=== PATIENT | female | born 1985 | race African-American/Black ===

== ENCOUNTER 2020-05-23 07:36 | Observation (INO) | payer BC ==
[2020-05-23] MEDS: MISOPROSTOL 0.2 MG TABLET PV SCH ×4 (09:32→22:08)
[2020-05-23 09:34] LABS: ABSOLUTE LYMPHOCYTES (AUTO) 1.4 10^3/uL (0.5-4.7); ABSOLUTE MONOCYTES (AUTO) 0.3 10^3/uL (0.1-1.4); ABSOLUTE NEUT (AUTO) 1.6 10^3/uL (1.7-8.2); BASOPHILS % (AUTO) 0.5 % (0-2); EOSINOPHILS % (AUTO) 0.5 % (0-6); HEMATOCRIT 34.8 % (36.0-47.0); HEMOGLOBIN 12.1 g/dL (12.0-15.5); LYMPHOCYTES % (AUTO) 41.8 % (13-45); MEAN CORPUSCULAR HEMOGLOBIN 28.2 pg (27.0-33.4); MEAN CORPUSCULAR HGB CONC 34.9 g/dL (32.0-36.0); MEAN CORPUSCULAR VOLUME 81 fl (80-97); MONOCYTES % (AUTO) 10.1 % (3-13); PLATELET COUNT 239 10^3/uL (150-450); RED CELL DISTRIBUTION WIDTH 15.5 % (11.5-14.0); SEGMENTED NEUTROPHILS % (AUTO) 47.1 % (42-78); TOTAL CELLS COUNTED % (AUTO) 100 %; WHITE BLOOD COUNT 3.3 10^3/uL (4.0-10.5)
[2020-05-23] MEDS ORDERED: MISOPROSTOL 0.2 MG TABLET PV SCH (10:00)
--- NOTE | 2020-05-23 11:53 | RADIOLOGY REPORT (SQ) ---
EXAM DESCRIPTION: U/S 1TRIMESTER/1GEST W/DOPPLER IMAGES COMPLETED DATE/TIME: 05/23/2020 11:39 am REASON FOR STUDY: demise 13 wk COMPARISON: None. TECHNIQUE: Transabdominal static and realtime grayscale images acquired of the pelvis. Additional se lected spectral and color Doppler images recorded. All images stored on PACs. bHCG: Not applicable. CLINICAL DATES: 15 week 4 day. LIMITATIONS: None. FINDINGS: FETUS: Single intrauterine . ULTRASOUND EGA: 12 week 4 day. ULTRASOUND MIGUEL: 12/01/2020. EFW: Not applicable less than 20 weeks. CRL: 6.11 cm. FHR: No cardiac activity. SURVEY: No visualized anomalies. AMNIOTIC FLUID: Adequate amount. PLACENTA: Not yet developed due to early gestation. SUBCHORIONIC BLEED: No. SIZE OF BLEED: Not applicable. UTERUS: No masses. No anomalies. CERVICAL LENGTH: 2.7 cm. Closed. RIGHT ADNEXA: Normal ovary with normal vascular flow. No adnexal free fluid. No adnexal masses. LEFT ADNEXA: Normal ovary with normal vascular flow. No adnexal free fluid. No adnexal masses. FREE FLUID: None. OTHER: No other significant finding. IMPRESSION: SINGLE INTRAUTERINE . NO CARDIAC ACTIVITY CONSISTENT WITH DEMISE. EGA 12 WEEK 4 DAY. Trimester of : First trimester - 0 to 13 weeks. TECHNICAL DOCUMENTATION: JOB ID: [id number] [employer]- All Rights Reserved rev-09/23 Reading location - IP/workstation name: [email or web address] ROSA
[2020-05-23] MEDS ORDERED: FLUCONAZOLE 100 MG TABLET ONE (12:27)
[2020-05-23] MEDS ORDERED: FLUCONAZOLE 100 MG TABLET PO ONE (12:30)
[2020-05-23] MEDS: OXYCODONE-ACETAMINOPHEN 5-325 MG TABLET PO PRN (13:35)
[2020-05-23] MEDS ORDERED: ONDANSETRON 4 MG TAB.RAPDIS PO PRN (18:08)
[2020-05-24] MEDS: OXYCODONE-ACETAMINOPHEN 5-325 MG TABLET PO PRN (01:13)
[2020-05-24] MEDS: MISOPROSTOL 0.2 MG TABLET PV SCH ×4 (02:24→17:06)
--- NOTE | 2020-05-24 02:34 | PDOC PROGRESS REPORT ---
Subjective Date:: 05/24/20 Subjective:: Passed fetus. Reason For Visit: DEMISE @ 14 WEEKS Physical Exam - Physical Exam Vital Signs: Temp Pulse Resp BP Pulse Ox 98.8 F 78 18 109/64 100 05/24/20 00:00 05/24/20 00:00 05/24/20 00:00 05/24/20 00:00 05/24/20 00:00 Intake & Output 05/22/20 05/23/20 05/24/20 06:59 06:59 06:59 Output Total 300 Balance -300 Weight 54.431 kg Result Laboratory Results: 05/23/20 08:57 05/23/20 05/23/20 08:57 08:57 WBC 3.3 L RBC 4.30 Hgb 12.1 Hct 34.8 L MCV 81 MCH 28.2 MCHC 34.9 RDW 15.5 H Plt Count 239 Seg Neutrophils % 47.1 Blood Type O POSITIVE Antibody Screen NEGATIVE Impressions: Obstetrics Ultrasound 05/23/20 00:00 IMPRESSION: SINGLE INTRAUTERINE . NO CARDIAC ACTIVITY CONSISTENT WITH DEMISE. EGA 12 WEEK 4 DAY. Trimester of : First trimester - 0 to 13 weeks. The patient passed the fetus. There are obvious deformities of the head and face. There are thin bands connecting the legs, arms and wrapping around the umbilical cord. One of the ankles is nearly amputated. This appears to be the cause of . The placenta has not yet passed and another dose of cytotec was placed. Assessment & Plan - Diagnosis (1) demise before 20 weeks with retention of fetus Is this a current diagnosis for this admission?: Yes - Time Time Spent with patient: 15-24 minutes Medications reviewed and adjusted accordingly: Yes Anticipated discharge: Home Anticipated DC Timeframe: within 24 hours - Plan Summary Plan Summary: Still awaiting delivery of the placenta.
[2020-05-24] MEDS ORDERED: MISOPROSTOL 0.2 MG TABLET ONE ×2 (06:32→10:08)
[2020-05-24] MEDS: RINGERS SOLUTION,LACTATED 1,000 ML IV PRN ×2 (07:45→15:45)
[2020-05-24] MEDS ORDERED: MISOPROSTOL 0.2 MG TABLET PV ONE (10:07)
[2020-05-24] MEDS ORDERED: FENTANYL CITRATE INJ/PF 100 MCG/2 ML AMPUL ONE (12:46)
[2020-05-24] MEDS ORDERED: MIDAZOLAM 2 MG/2 ML INJ ONE (12:46)
[2020-05-24] MEDS ORDERED: ONDANSETRON HCL INJ/PF 4 MG/2 ML SDV ONE (12:46)
[2020-05-24] MEDS ORDERED: PROPOFOL INJ 200 MG/20 ML VIAL IV ONE (12:46)
[2020-05-24] MEDS ORDERED: MEPERIDINE HCL/PF INJ 25 MG/1 ML DISP.SYRIN IV PRN (13:12)
[2020-05-24] MEDS ORDERED: MORPHINE SULFATE 10 MG/ML INJ IV PRN (13:12)
[2020-05-24] MEDS ORDERED: FENTANYL CITRATE INJ/PF 100 MCG/2 ML AMPUL IV PRN ×3 (13:12)
[2020-05-24] MEDS ORDERED: DIPHENHYDRAMINE HCL 50 MG/ML VIAL IV PRN (13:12)
[2020-05-24] MEDS ORDERED: RINGERS SOLUTION,LACTATED 1,000 ML IV PRN (13:34)
[2020-05-24] MEDS ORDERED: OXYCODONE-ACETAMINOPHEN 5-325 MG TABLET PO PRN ×2 (13:34)
[2020-05-24] MEDS ORDERED: IBUPROFEN 800 MG TABLET PO PRN (13:34)
[2020-05-24] MEDS ORDERED: KETOROLAC TROMETHAMINE INJ/PF 30 MG/1 ML SDV IV PRN (13:34)
--- NOTE | 2020-05-24 13:39 | Operative Report ---
Operative Report DATE OF SURGERY: 05/24/20 PREOPERATIVE DIAGNOSIS: retained placenta POSTOPERATIVE DIAGNOSIS: same OPERATION: suction dilation and currettage SURGEON: WILLY SEGURA ANESTHESIA: LMAC TISSUE REMOVED OR ALTERED: placental tissue COMPLICATIONS: none ESTIMATED BLOOD LOSS: 100 cc INTRAOPERATIVE FINDINGS: Uterus sounded to 11 cm, mild to moderate amount of placental tissue obtained consistent with a 13-week gestation PROCEDURE: Patient was taken to the operating room prepared and draped in a normal sterile fashion in a dorsal lithotomy position. An in and out cath was performed of approximately 100 cc of clear urine. Sterile speculum was placed into the vagina and the cervix was prepped with Betadine and grasped on the anterior lip with a single-tooth tenaculum. The uterus was sounded to the above findings. The cervix was dilated to accommodate an 10 mm curved curette. The curved curette was passed x3 under suction and a small amount of placenta type tissue was removed. Curettage was performed using Kevorkian curette. Good grit was noted 360 degrees around. One More pass with the suction curette no further tissue. The procedure was then concluded instruments were removed sponge lap and needle counts were correct x2. She was taken to recovery in stable condition
[2020-05-24] MEDS ORDERED: DOXYCYCLINE HYCLATE 100 MG in DEXTROSE 5%-WATER 250 ML IV ONE (14:00)
--- NOTE | 2020-05-24 19:59 | PDOC DISCHARGE SUMMARY ---
Impression - Admit/DC Date/PCP Admission Date/Primary Care Provider: 05/23/20 07:36 AGUILAR DAVIS MD Discharge Date: 05/24/20 - Discharge Diagnosis (1) demise before 20 weeks with retention of fetus Is this a current diagnosis for this admission?: Yes (2) Retained placenta or membranes without hemorrhage Is this a current diagnosis for this admission?: Yes - Assessment Summary: patient was admitted for induction of demise at approximately 13 wks gestation. After delivery of fetus this AM the placenta failed to deliver and after several hours the decision was made to proceed with a suction D&C. Her post operative course has been unremarkable and she is now doing well. Her bleeding is minimal. - Additional Information Resuscitation Status: Full Code Discharge Diet: As Tolerated Discharge Activity: Balance Activity w/Rest, Pelvic Rest, No tub bath Referrals: AGUILAR DAVIS MD [Primary Care Provider] - Prescriptions: Ibuprofen [Motrin 800 mg Tablet] 800 mg PO ONCEP PRN #60 tablet PRN Reason: Home Medications: Vits96/Iron Fum/Folic [ Tablet] 1 each PO DAILY 05/23/20 Ibuprofen [Motrin 800 mg Tablet] 800 mg PO ONCEP PRN #60 tablet 05/24/20 History of Present Illiness History of Present Illness: FLAKITO DURAN is a 34 year old female Physical Exam - Physical Exam Vital Signs: Temp Pulse Resp BP Pulse Ox 98.4 F 77 18 99/53 L 99 05/24/20 18:44 05/24/20 18:44 05/24/20 18:44 05/24/20 18:44 05/24/20 18:44 Intake & Output 05/23/20 05/24/20 05/25/20 06:59 06:59 06:59 Intake Total 1500 Output Total 1500 1100 Balance -1500 400 Weight 54.431 kg Results Laboratory Results: WBC 3.3 10^3/uL (4.0-10.5) L 05/23/20 08:57 RBC 4.30 10^6/uL (3.72-5.28) 05/23/20 08:57 Hgb 12.1 g/dL (12.0-15.5) 05/23/20 08:57 Hct 34.8 % (36.0-47.0) L 05/23/20 08:57 MCV 81 fl (80-97) 05/23/20 08:57 MCH 28.2 pg (27.0-33.4) 05/23/20 08:57 MCHC 34.9 g/dL (32.0-36.0) 05/23/20 08:57 RDW 15.5 % (11.5-14.0) H 05/23/20 08:57 Plt Count 239 10^3/uL (150-450) 05/23/20 08:57 Lymph % (Auto) 41.8 % (13-45) 05/23/20 08:57 [place] % (Auto) 10.1 % (3-13) 05/23/20 08:57 Eos % (Auto) 0.5 % (0-6) 05/23/20 08:57 Baso % (Auto) 0.5 % (0-2) 05/23/20 08:57 Absolute Neuts (auto) 1.6 10^3/uL (1.7-8.2) L 05/23/20 08:57 Absolute Lymphs (auto) 1.4 10^3/uL (0.5-4.7) 05/23/20 08:57 Absolute Monos (auto) 0.3 10^3/uL (0.1-1.4) 05/23/20 08:57 Absolute Eos (auto) 0.0 10^3/uL (0.0-0.6) 05/23/20 08:57 Absolute Basos (auto) 0.0 10^3/uL (0.0-0.2) 05/23/20 08:57 Seg Neutrophils % 47.1 % (42-78) 05/23/20 08:57 POC Glucose 99 mg/dL (70-110) 05/23/20 18:14 Influenza A (RT-PCR) NEGATIVE (NEGATIVE) 05/24/20 05:59 Influenza B (RT-PCR) NEGATIVE (NEGATIVE) 05/24/20 05:59 RSV (RT-PCR) NEGATIVE (NEGATIVE) 05/24/20 05:59 SARS-CoV-2 Rap RNA(RT-PCR) NEGATIVE (NEGATIVE) 05/24/20 05:59 Blood Type O POSITIVE 05/23/20 08:57 Antibody Screen NEGATIVE 05/23/20 08:57 Impressions: Obstetrics Ultrasound 05/23/20 00:00 IMPRESSION: SINGLE INTRAUTERINE . NO CARDIAC ACTIVITY CONSISTENT WITH DEMISE. EGA 12 WEEK 4 DAY. Trimester of : First trimester - 0 to 13 weeks. Stroke Is this a Stroke Patient?: No Acute Heart Failure Is this a Heart Failure Patient?: No
[2020-05-24 20:49] VITALS: BP 106/55
== END 2020-05-24 20:47 | disposition home or self-care (01) ==
LOC: 2N 07:36
PROVIDERS: ADMIT Obstetrics & Gynecology; ATTEND Obstetrics & Gynecology
DX: O02.1 Missed abortion (principal); Z01.812 Encounter for preprocedural laboratory examination; Z20.822 Contact with and (suspected) exposure to COVID-19
CPT/HCPCS: 86900; 86901; 36415 ×2; 86850; 82962; 85025; 0241U; 88305 ×2; 76801; 93976; 99140; 00940; 59820; G0378 ×2; G0379; J2250; J3010; J2405; J7120; J2704; C9803; 88307; 940